=== PATIENT | female | born 1960 | race African-American/Black ===

== ENCOUNTER 2017-11-10 07:26 | Outpatient (CLI) | payer BC ==
[2017-11-10] MEDS ORDERED: ISOVUE-370 76%-LOCM 1 ML ONE (11:36)
== END 2017-11-10 07:27 | disposition home or self-care (01) ==
LOC: BICCT 07:26
PROVIDERS: ATTEND Internal Medicine Gastroenterology
DX: R10.30 Lower abdominal pain, unspecified (principal); R22.2 Localized swelling, mass and lump, trunk
CPT/HCPCS: 74177

== ENCOUNTER 2017-11-15 09:05 | Outpatient (CLI) | payer BC | END 2017-11-15 09:06 | disposition home or self-care (01) | LOC: BICULT 09:05 | PROVIDERS: ATTEND Internal Medicine | DX: R22.2 Localized swelling, mass and lump, trunk (principal); R10.30 Lower abdominal pain, unspecified | CPT/HCPCS: 76700 ==

== ENCOUNTER 2019-01-11 08:37 | Outpatient (CLI) | payer BC ==
--- NOTE | 2019-01-11 09:29 | MMO ---
Bilateral MAMMO Bilat Screen [facility]. CLINICAL HISTORY: Patient is 58 years old and is seen for screening. The patient has no family history of breast cancer. The patient has no personal history of cancer. The patient has a history of left Excisional Biopsy in 2001 - benign and left Cyst Aspiration at age 17 - benign. VIEWS: The views performed were: bilateral craniocaudal with tomosynthesis; bilateral mediolateral oblique with tomosynthesis; and left mediolateral oblique. FILMS COMPARED: The present examination has been compared to prior imaging studies performed at [facility] on 10/18/2013, 12/24/2014, 01/01/2016 and 06/01/2017. MAMMOGRAM FINDINGS: There are scattered fibroglandular densities. Nodularity is stable. Left biopsy clip. There are no suspicious masses, suspicious calcifications, or new areas of architectural distortion. IMPRESSION: THERE IS NO MAMMOGRAPHIC EVIDENCE OF MALIGNANCY. A ROUTINE FOLLOW-UP MAMMOGRAM IN 1 YEAR IS RECOMMENDED. THE RESULTS OF THIS EXAM WERE SENT TO THE PATIENT. ACR BI-RADS Category 2 - Benign finding MAMMOGRAPHY NOTE: 1. A negative mammogram report should not delay a biopsy if a dominant of clinically suspicious mass is present. 2. Approximately 10% to 15% of breast cancers are not detected by mammography. 3. Adenosis and dense breasts may obscure an underlying neoplasm.
== END 2019-01-11 08:38 | disposition home or self-care (01) ==
LOC: BICMAMMO 08:37
PROVIDERS: ATTEND Internal Medicine
DX: Z12.31 Encounter for screening mammogram for malignant neoplasm of breast (principal)
CPT/HCPCS: 77063; 77067

== ENCOUNTER 2019-12-04 11:47 | Outpatient (CLI) | payer BC ==
--- NOTE | 2019-12-04 14:44 | RAD ---
LEFT HIP 2 VIEWS: HISTORY: Left hip pain. FINDINGS/IMPRESSION: No fracture, dislocation, or bony destruction is seen. No significant arthritic changes are noted. POS: PAULINAA
== END 2019-12-04 11:48 | disposition home or self-care (01) ==
LOC: BICRAD 11:47
PROVIDERS: ATTEND Internal Medicine
DX: M25.552 Pain in left hip (principal)
CPT/HCPCS: 36415; 80053; 80061; 83036; 84443; 84550; 85025; 85652; 86140

== ENCOUNTER 2020-05-08 08:43 | Outpatient (CLI) | payer BC ==
--- NOTE | 2020-05-08 11:59 | RAD ---
LUMBAR SPINE 7 VIEWS: Date: 05/08/2020 INDICATION: Low back pain. FINDINGS: In the AP projection, there is a slight scoliotic curvature to the right. In the lateral view, the geovany mbar vertebra maintain height. There is mild degenerative spurring from the lumbar vertebra. There is prominent facet hypertrophy, e specially in the lower spine at L4-5 and L5-S1. There is a mild anterolisthesis at L4-5 and a mild an terolisthesis at L5-S1. Listhesis at both levels measures in the 5.0 mm range. No definite spondyloly sis identified. Anterolisthesis at both of these levels does not appear to significantly changed with flexion or extension. IMPRESSION: There is a slight scoliotic curvature to the right and there are degenerative changes as described ab ove with prominent facet hypertrophy in the lower lumbar spine. Mild anterolisthesis at L4-5 and L5-S 1 is noted as described. POS: AH
== END 2020-05-08 08:44 | disposition home or self-care (01) ==
LOC: BICRAD 08:43
PROVIDERS: ATTEND Internal Medicine Rheumatology
DX: M54.5 Low back pain (principal); M47.816 Spondylosis without myelopathy or radiculopathy, lumbar region; M43.16 Spondylolisthesis, lumbar region; M43.17 Spondylolisthesis, lumbosacral region; M41.9 Scoliosis, unspecified
CPT/HCPCS: 36415; 72100; 80053; 80061; 81001; 82306; 84439; 84443; 84550; 85025

== ENCOUNTER 2020-10-02 09:19 | Outpatient (CLI) | payer BC | END 2020-10-02 09:20 | disposition home or self-care (01) | LOC: BICRAD 09:19 | PROVIDERS: ATTEND Internal Medicine | DX: R06.02 Shortness of breath (principal) | CPT/HCPCS: 71046 ==

== ENCOUNTER 2020-10-03 12:22 | Outpatient (CLI) | payer BC | END 2020-10-03 12:23 | disposition home or self-care (01) | LOC: BICMAMMO 12:22 | PROVIDERS: ATTEND Orthopaedic Surgery | DX: Z12.31 Encounter for screening mammogram for malignant neoplasm of breast (principal); Z91.89 Other specified personal risk factors, not elsewhere classified | CPT/HCPCS: 77063; 77067 ==

== ENCOUNTER 2021-08-04 10:24 | Outpatient (CLI) | payer BC | END 2021-08-04 10:25 | disposition home or self-care (01) | LOC: BICRAD 10:24 | PROVIDERS: ATTEND Internal Medicine Rheumatology | DX: M25.561 Pain in right knee (principal) ==

== ENCOUNTER 2021-12-04 08:07 | Outpatient (CLI) | payer BC | END 2021-12-04 08:08 | disposition home or self-care (01) | LOC: BICMAMMO 08:07 | PROVIDERS: ATTEND Internal Medicine | DX: Z12.31 Encounter for screening mammogram for malignant neoplasm of breast (principal); Z13.820 Encounter for screening for osteoporosis; Z91.89 Other specified personal risk factors, not elsewhere classified | CPT/HCPCS: 77063; 77067; 77080 ==

== ENCOUNTER 2024-03-16 10:53 | Outpatient (CLI) | payer BC | END 2024-03-16 10:54 | disposition home or self-care (01) | LOC: BICMAMMO 10:53 | PROVIDERS: ATTEND Nurse Practitioner | DX: Z12.31 Encounter for screening mammogram for malignant neoplasm of breast (principal); Z91.89 Other specified personal risk factors, not elsewhere classified | CPT/HCPCS: 77063; 77067 ==

== ENCOUNTER 2025-05-31 09:16 | Outpatient (CLI) | payer BC | END 2025-05-31 09:17 | disposition home or self-care (01) | LOC: BICMAMMO 09:16 | PROVIDERS: ATTEND Nurse Practitioner | DX: Z12.31 Encounter for screening mammogram for malignant neoplasm of breast (principal); Z91.89 Other specified personal risk factors, not elsewhere classified | CPT/HCPCS: 77063; 77067 ==